=== PATIENT | male | born 1950 | race Caucasian/White ===

== ENCOUNTER 2016-09-27 08:32 | Emergency (ER) | payer OTHER ==
[~2016-09-27] VITALS: Ht 180.3 cm; Wt 97.5 kg
--- NOTE | 2016-09-27 08:46 | ED UPPER/LOWER EXTREMITY COMPL ---
History of Present Illness General Chief Complaint: Lower Extremity Injury Stated Complaint: LFT KNEE INJURY LAST WEEK Source: patient, old records Exam Limitations: no limitations Vital Signs & Intake/Output Vital Signs & Intake/Output Vital Signs Date Time Temp Pulse Resp B/P B/P Pulse O2 O2 Flow FiO2 Mean Ox Delivery Rate 09/27 1018 98.3 89 18 122/84 98 Room Air 09/27 0835 97.2 83 18 132/84 97 Room Air Allergies Coded Allergies: codeine (UNKNOWN 09/27/16) Reconcile Medications Ibuprofen 600 MG TABLET 1 TAB PO Q6PRN PRN pain with food Oxycodone HCl/Acetaminophen (Percocet 5-325 MG Tablet) 5 MG-325 MG TABLET 1 TAB PO Q6P PRN severe pain Prednisone 20 MG TABLET 1 TAB PO BID arthritis Triage Note: PT TO ED FOR EXACERBATION OF CHRONIC KNEE PAIN AFTER DOING "A LOT OF YARDWORK LAST THURSDAY I HAVENT GONE TO WORK ALL WEEK". TOOK [employer] TO [employer]. Triage Nurses Notes Reviewed? yes Onset: Last week Duration: week(s):, constant, continues in ED Timing: recent history Severity: moderate, severe Pain/Injury Location: Left: Knee. Method of Injury: yardwork Modifying Factors: Improves With: pain medication, rest. Worsens With: movement. Associated Symptoms: swelling, GCS 15 since, stiffness HPI: 2 weeks prior to admission patient reports working in his backyard fixing a fence eventually developing left knee pain and swelling worse with bending ambulation turning slight improvement with ibuprofen. He denies injury fever chills nausea vomiting diarrhea abdominal pain chest pain shortness breath headache dysuria rash bleeding change in motor sensory function change in bowel bladder habit. Past History Travel History Traveled to [place] past 21 day No Medical History Any Pertinent Medical History? see below for history Neurological: NONE EENT: NONE Cardiovascular: hypertension Respiratory: NONE Gastrointestinal: NONE Hepatic: NONE Renal: NONE Musculoskeletal: NONE Psychiatric: NONE Endocrine: NONE Blood Disorders: NONE Cancer(s): NONE Pneumonia Vaccine: 01/25/09 Influenza Vaccine: 01/25/09 Surgical History Surgical History: knee replacement Psychosocial History Who do you live with Spouse Services at Home None What is your primary language Persian Tobacco Use: Never used ETOH Use: occasional use Illicit Drug Use: denies illicit drug use Family History Hx Contributory? No Review of Systems Review of Systems Constitutional: Reports: no symptoms. EENTM: Reports: no symptoms. Respiratory: Reports: no symptoms. Cardiovascular: Reports: no symptoms. Gastrointestinal/Abdominal: Reports: no symptoms. Genitourinary: Reports: no symptoms. Musculoskeletal: Reports: see HPI, joint pain, joint swelling. Skin: Reports: no symptoms. Neurological/Psychological: Reports: no symptoms. Hematologic/Endocrine: Reports: no symptoms. Immunological: Reports: no symptoms. All Other Systems: Reviewed and Negative Physical Exam Physical Exam General Appearance: well developed/nourished, alert, awake, mild distress Head: atraumatic, normal appearance Eyes: Bilateral: normal appearance, PERRL, EOMI. Ears, Nose, Throat: normal pharynx, normal ENT inspection, hearing grossly normal Neck: normal inspection, supple, full range of motion, no midline tenderness Cardiovascular/Respiratory: normal breath sounds, normal peripheral pulses, regular rate/rhythm, no respiratory distress Peripheral Pulses: 4+ carotid (R), 4+ carotid (L) Back: normal inspection, normal range of motion, no vertebral tenderness Shoulder Left: normal range of motion, normal inspection Shoulder Right: normal range of motion, normal inspection Elbow Left: normal range of motion, normal inspection Elbow Right: normal range of motion, normal inspection Hand Left: normal inspection, normal range of motion Hand Right: normal inspection, normal range of motion Upper Extremity Reflexes: 2+: bicep (R), bicep (L). Leg Left: normal range of motion, normal inspection Leg Right: normal range of motion, normal inspection Hip Left: normal range of motion, normal inspection Hip Right: normal range of motion, normal inspection Knee Left: swelling, tenderness (lateral), limited range of motion Knee Right: normal range of motion, normal inspection Foot Left: normal inspection, normal range of motion Foot Right: normal inspection, normal range of motion Lower Extremity Reflexes: 1+: ankle (R), ankle (L). 2+: knee (R). Neurologic/Tendon: normal sensation, normal motor functions, normal tendon functions Skin: intact, normal color, warm/dry Lymphatic: no anterior cervical fahad Progress Differential Diagnosis: contusion, fracture, sprain Plan of Care: Orders Procedure Date/time Status XRY-KNEE COMPLETE LEFT 09/27 0844 Active Diagnostic Imaging: Viewed by Me: Radiology Read. Discussed w/RAD: Radiology Read. Radiology Impression: no acute abnormality, no fracture, no dislocation, no foreign body seen, Moderate medial compartment narrowing with varus deformity in standing. Associated degenerative osteophyte formation. Departure Departure Time of Disposition: 100 Disposition: HOME OR SELF CARE Condition: Stable Clinical Impression Primary Impression: Degenerative joint disease of knee Qualifiers: Osteoarthritis type: primary Laterality: left Qualified Code: M17.12 - Unilateral primary osteoarthritis, left knee Referrals: JORGE A PEDERSON,JED Win (PCP/Family) RICHY PEDERSON,JENNIFFER [place] Departure Forms: Customer Survey General Discharge Information Prescriptions: Current Visit Scripts Ibuprofen 1 TAB PO Q6PRN PRN pain #50 TAB with food Prednisone 1 TAB PO BID #10 TAB Oxycodone HCl/Acetaminophen (Percocet 5-325 MG Tablet) 1 TAB PO Q6P PRN severe pain #15 TAB
--- NOTE | 2016-09-27 10:04 | RADIOLOGY REPORT ---
EXAMINATION: XR KNEE, LEFT CLINICAL INFORMATION: Left knee swelling and pain after exertion COMPARISON: None TECHNIQUE: Four views of the left knee. FINDINGS: Moderate to marked medial compartment narrowing is demonstrated with marginal osteophytes at the medial joint margin, tibial spine, intercondylar notch, lateral margin and patellar osteophytes. Varus knee deformity is seen with standing. No acute osseous abnormality. IMPRESSION: Moderate medial compartment narrowing with varus deformity in standing. Associated degenerative osteophyte formation.
[2016-09-27] MEDS ORDERED: IBUPROFEN600 M1 PO (10:09)
[2016-09-27] MEDS ORDERED: PERCOCET 5-3251 EACH PO (10:09)
[2016-09-27] MEDS ORDERED: PREDNISONE20 M1 PO (10:09)
[2016-09-27 10:18] VITALS: BP 122/84
== END 2016-09-27 10:28 ==
LOC: ERH 08:32
DX: M17.9 Osteoarthritis of knee, unspecified (principal)
CPT/HCPCS: 73562-LT